=== PATIENT | female | born 1935 ===

== ENCOUNTER → 2017-04-02 | Outpatient (CLI) | payer MEDICARE ==
[~2017-04-02] MED LIST: ALBU8.5H IH; ASPI-1471 PO; CHOL10005 PO; FLU180SY9 IM; FLUT1DIS28 IH; LEVO-3 PO; LEVO88TA45 PO; MELO-205 PO; OMEG-11 PO; OMEG100T3 PO; PANT20TA27 PO; PANT40TA65 PO; VITA100T5 PO
== END ==
LOC: LAB 10:45
PROVIDERS: ATTEND Family Medicine
DX: E03.9 Hypothyroidism, unspecified (principal)
CPT/HCPCS: 36415; 84439; 84443

== ENCOUNTER → 2017-04-06 | Outpatient (CLI) | payer MEDICARE | LOC: RESP 06:59 | PROVIDERS: ATTEND Family Medicine | DX: J98.4 Other disorders of lung (principal); J44.9 Chronic obstructive pulmonary disease, unspecified | CPT/HCPCS: 94060; 94726; 94729 ==

== ENCOUNTER → 2017-09-30 | Outpatient (CLI) | payer MEDICARE ==
[~2017-09-30] MED LIST changes: +DIPH0.5D12 IM; +RANI-318 PO
[2017-09-30 16:09] LABS: PLATELET COUNT, AUTOMATED 182 K/uL (150-450)
[2017-09-30 16:22] LABS: LDL CHOLESTEROL 135 mg/dl
== END ==
LOC: LAB 15:44
PROVIDERS: ATTEND Family Medicine
DX: E03.9 Hypothyroidism, unspecified (principal)
CPT/HCPCS: 36415; 82040; 82247; 82310; 82374; 82435; 82465; 82565; 82947; 83718; 84075; 84132; 84155; 84295; 84443; 84450; 84460; 84478; 84520; 85025

== ENCOUNTER → 2018-04-28 | Outpatient (CLI) | payer MEDICARE ==
[2018-04-28 16:21] LABS: PLATELET COUNT, AUTOMATED 235 K/uL (150-450)
== END ==
LOC: LAB 15:42
PROVIDERS: ATTEND Family Medicine
DX: E03.9 Hypothyroidism, unspecified (principal)
CPT/HCPCS: 36415; 82310; 82374; 82435; 82565; 82947; 84132; 84295; 84443; 84520; 85025

== ENCOUNTER → 2018-06-10 | Outpatient (CLI) | payer MEDICARE ==
--- NOTE | 2018-06-10 11:02 | RADIOLOGY IMAGING REPORT ---
FACILITY: [facility] PATIENT NAME: Jacklyn Krause : 1935 MR: [id number] V: [id number] EXAM DATE: ORDERING PHYSICIAN: ORLY ALBERTS TECHNOLOGIST: Location: [facility] Patient: Jacklyn Krause : 1935 Visit/Account:[id number] Date of Sevice: 06/10/2018 DEXA Scan Clinical history: Screening, postmenopausal. Comparison: None available. LUMBAR SPINE: The bone mineral density (BMD) measured from L1-L4 correlates with a Z-score 0.2 and a T-score of -1. 5 which is osteopenia as defined by the World Health Organization. The corresponding risk of fractur e in the lumbar spine is 3 times increased compared with a young adult reference population. HIP: Bone mineral density (BMD) measured in the Left total hip region correlates with a Z-score 0.5 and a T-score of -1.5 which is osteopenia as defined by the World Health Organization. The corresponding r isk of fracture in the hip is 3 times increased compared with a young adult reference population. T score left femoral neck -1.6 Bone mineral density (BMD) measured in the Femoral Neck region measures 0.815 g/cm2. Impression: 1. Lumbar spine: Osteopenia. 2. Left Hip: Osteopenia. 3. Femoral Neck: Bone Mineral Density is 0.815 g/cm2 The next DEXA scan of this patient should include the following sites: L1-L4 and the left hip. FRAX? WHO Fracture Risk Assessment Tool link: <http://www.shef.ac.uk/FRAX/tool.jsp?locationValue=9> PLEASE NOTE: 1) The World Health Organization defines low BMD as follows: T-score Normal > -1 Osteopenia < -1 and > -2.5 Osteoporosis < -2.5 without fractures Established osteoporosis < -2.5 with fractures 2) In general, you may wish to consider: Diagnosis Treatment Follow-up DEXA Normal BMD Prevention 2-3 years Osteopenia Prevention/therapy 1-2 years Osteoporosis Therapy Yearly 3) Fracture risk estimated from the T-score is more accurate for vertebral fractures (often spontane ous) than for hip fractures. Report Dictated By: Aspen Tang MD at 06/10/2018 10:55 AM Report E-Signed By: Aspen Tang MD at 06/10/2018 10:56 AM [email or web address]
== END ==
LOC: RAD 01:10
PROVIDERS: ATTEND Family Medicine
DX: Z13.820 Encounter for screening for osteoporosis (principal); M85.89 Other specified disorders of bone density and structure, multiple sites
CPT/HCPCS: 77080

== ENCOUNTER → 2018-09-16 | Outpatient (CLI) | payer MEDICARE ==
[~2018-09-16] MED LIST changes: -DIPH0.5D12 IM; +DIPH0.5S2 IM; +LISI-362 PO
== END ==
LOC: LAB 09:54
PROVIDERS: ATTEND Family Medicine
DX: I10 Essential (primary) hypertension (principal)
CPT/HCPCS: 36415; 82310; 82374; 82435; 82565; 82947; 84132; 84295; 84520